=== PATIENT | female | born 1945 | race Caucasian/White ===

== ENCOUNTER 2019-05-17 16:33 | Outpatient (CLI) | payer MEDICARE, OTHER ==
--- NOTE | 2019-05-17 17:54 | RAD ---
THORACIC SPINE TWO VIEWS: 05/17/19 Mild degenerative changes are seen throughout the spine, particularly in the mid to lower levels. No fracture or dislocation was seen. IMPRESSION: Mild degenerative change. POS: HOME
== END 2019-05-17 16:34 | disposition home or self-care (01) ==
LOC: BURRAD 16:33
PROVIDERS: ATTEND Family Medicine
DX: M54.6 Pain in thoracic spine (principal); M47.814 Spondylosis without myelopathy or radiculopathy, thoracic region
CPT/HCPCS: 72070

== ENCOUNTER 2021-07-26 14:02 | Emergency (ER) | payer MEDICARE, OTHER ==
[2021-07-26 14:42] LABS: Bilirubin Negative (Negative); Blood, Urine Large (Negative); Clarity Cloudy (Clear); Glucose, Urine (Dipstick) Negative (Negative); Ketone, Urine Negative (Negative); Leukocyte Large (Negative); Nitrite Negative (Negative); Protein, Urine (Dipstick) Negative (Neg-Trace); Specific Gravity, Urine 1.015 (1.005-1.030); Urobilinogen 0.2 mg/dL (Less than 2)
[2021-07-26 14:46] LABS: Bacteria/HPF 1+ HPF (None Seen); Squamous Epithelial 0-3 HPF (0-3); WBC/HPF 21-50 HPF (0-3)
== END 2021-07-26 15:35 | disposition home or self-care (01) ==
LOC: BURERS 14:02
DX: N39.0 Urinary tract infection, site not specified (principal); I25.10 Atherosclerotic heart disease of native coronary artery without angina pectoris; E78.5 Hyperlipidemia, unspecified; E78.2 Mixed hyperlipidemia; I10 Essential (primary) hypertension; M06.9 Rheumatoid arthritis, unspecified
CPT/HCPCS: 81003; 81015; 87077; 87086; 87186; 99283

== ENCOUNTER 2023-07-28 09:10 | Outpatient (CLI) | payer MEDICARE, OTHER | END 2023-07-28 09:11 | disposition home or self-care (01) | LOC: BURCT 09:10 | PROVIDERS: ATTEND Surgery | DX: M47.22 Other spondylosis with radiculopathy, cervical region (principal); M48.02 Spinal stenosis, cervical region | CPT/HCPCS: 72125 ==

== ENCOUNTER 2024-03-17 13:11 | Outpatient (CLI) | payer MEDICARE, OTHER | END 2024-03-17 13:12 | disposition home or self-care (01) | LOC: BURRAD 13:11 | PROVIDERS: ATTEND Physician Assistant | DX: M48.02 Spinal stenosis, cervical region (principal); M47.812 Spondylosis without myelopathy or radiculopathy, cervical region; Z98.1 Arthrodesis status | CPT/HCPCS: 72040 ==